=== PATIENT | male | born 1995 | race Caucasian/White ===

== ENCOUNTER 2022-03-04 15:54 | Observation (INO) | payer OTHER ==
[~2022-03-04] VITALS: Ht 172.7 cm; Wt 104.3 kg
[2022-03-04 17:06] LABS: RED BLOOD COUNT 5.13 M/UL (4.20-5.50); WHITE BLOOD COUNT 15.4 K/UL (4.5-11.0)
[2022-03-04 17:30] LABS: BUN/CREATININE RATIO 10 (0-10)
[2022-03-05] MEDS ORDERED: HYDROCODON-ACE1 EAC4 PO (10:22)
== END 2022-03-05 11:05 | disposition home or self-care (01) ==
LOC: ER1 15:54 → CDU 20:17 → PROG CARE 23:14
PROVIDERS: Physician Assistant; ADMIT Surgery
PROC: 0DTJ4ZZ Resection of Appendix, Percutaneous Endoscopic Approach (ICD-10-PCS; principal; 2022-03-04 21:29)
DX: K35.30 Acute appendicitis with localized peritonitis, without perforation or gangrene (principal)
CPT/HCPCS: 80053; 81001; 85025; 96374; 96375; 99285; G0378; J1100; J1885; J2001; J2250; J2405; J2543; J2704; J2710; J3010; Q9967